=== PATIENT | male | born 1985 | race Caucasian/White ===

== ENCOUNTER 2025-02-19 18:16 | Emergency (ER) | payer MEDICAID, SELFPAY ==
[2025-02-19 18:50] VITALS: BP 119/78; PULSE 67; RESP 17; TEMP 37.3; O2SAT 97
--- NOTE | 2025-02-19 19:12 | EDNOTE_ITS ---
<Statement entered by Anisa Vargas MD - 02/20/25 18:56> As co-signing physician, I was present and available for consult prn. I concur with the plan and care as documented by the midlevel provider. ED General RME/HPI General Chief complaint: General Adult/Misc Complain Stated complaint: ABSCESS TOOTH, INFLAMMED SINUSES Time Seen by Provider: 02/19/25 19:01 Arrival date/time: 02/19/25 18:16 RME / HPI RME / HPI narrative: 39-year-old male presents to the ED with a complaint of left upper dental pain as well as sinus pressure. He denies any fever or chills, runny nose but has had some nasal congestion as well as left maxillary sinus and upper nasal pain. He denies any cough or difficulty breathing. He denies nausea, vomiting or diarrhea. Related Data Previous Rx's ?Medication ?Instructions ?Recorded sumatriptan succinate 100 mg 100 mg PO Q2H PRN migrain e 11/23/21 tablet (Imitrex) headache #9 tabs amoxicillin 875 mg-potassium 1 tab PO BID #20 tabs clavulanate 125 mg tablet Allergies Allergy/AdvReac Type Severity Reaction Status Date / Time No Known Allergies Allergy Verified 02/19/25 18:20 Review of Systems Review of Systems Systems Reviewed: All systems reviewed, normal except as documented Past Medical History Social History SMOKING STATUS: Never smoker ED Exam Narrative Physical exam: A&O, afebrile and non-toxic appearing, pleasant 39-year-old male, no acute distress. TMs and pharynx without erythema. Tooth #12 has a deep hole with per cussive tenderness. Nares with erythema and edema. Left maxillary sinus tenderness. No frontal or right maxillary sinus tenderness noted. Neck is supple, no adenopathy. Lung sounds reveal congestion in the left base, otherwise clear., RRR, Abdomen is non-distended. Moves all extremities well. Course Course Course Narrative: N/A Quality Measures none Orders N/A Vital Signs Vital signs: Vital Signs Temperature 99.1 F 02/19/25 18:50 Pulse Rate 67 02/19/25 18:50 Respiratory Rate 17 02/19/25 18:50 Blood Pressure 119/78 02/19/25 18:50 Pulse Oximetry (%) 97 02/19/25 18:50 Oxygen Delivery Method Room Air 02/19/25 18:50 Discharge Plan Plan Patient Disposition: HOME (Self Care) Discharge Disposition comment: Stable Prescriptions/Referrals Prescriptions/Med Rec: New amoxicillin-pot clavulanate 875-125 mg tablet 1 tab PO BID Qty: 20 0RF No Action sumatriptan succinate [Imitrex] 100 mg tablet 100 mg PO Q2H PRN (Reason: migraine headache) Qty: 9 0RF Rx Instructions: do not exceed 2 doses per 24 hrs Problem List Clinical Impression: Dental abscess, Sinusitis Patient/Caregiver Discharge Instructions Education Materials: ED Dental Abscess, ED Sinusitis (Antibiotic Treatment) Additional Instructions: Take the antibiotics as prescribed and complete the course even though you may be feeling better. Follow-up with your primary care physician and dentist in 24 to 48 hours. Return to the ED for any new or worsening symptoms. Print Language: Indonesian Stand Alone Forms: Neli Award Info., Patient Portal Info Letter PA/DRE Supervising Physician PA/AUTO RENTAL CLERK Supervising Physician: Dr. Vargas [facility] Narrative [facility] hospital course: Symptoms, exam and diagnostic studies are consistent with: #12 tooth with abscess possibly extending into the left maxillary sinus. Patient was discharged home in stable condition with a prescription for Augmentin which will cover both the dental issue as well as any potential sinus issue. Patient/family advised to follow-up with their PCP in 24-48 hours. Encouraged to return to the ED for any new or worsening symptoms. Clinical Information Provided by patient Medical Records Reviewed None Meds/Rx Considered, not Ordered None Describe details: N/A Labs/Rad/Tests considered, not Ordered None Describe details: N/A Chronic Illness/Social Conditions which may negatively complicate care or outcome(s)-explain: None or not applicable EKG EKG not done Lab Interpretation Labs: none Lab(s) interpretation(s): N/A Imaging Imaging interpretation: none Medication Administration(s) none N/A Diagnosis Differential diagnosis: Dental caries, dental fracture, dental abscess Most likely dx, and/or detailed dx discussion: Dental caries with abscess Dispositon Disposition: Discharge Home Disposition comments: Stable for discharge
== END 2025-02-19 19:21 | disposition home or self-care (01) ==
LOC: SERX 19:25
PROVIDERS: Emergency Provider Emergency Medicine; PCP Family Medicine
DX: K04.7 Periapical abscess without sinus (principal); J32.9 Chronic sinusitis, unspecified
CPT/HCPCS: 99282